=== PATIENT | female | born 2000 | race Caucasian/White ===

== ENCOUNTER 2022-03-17 10:31 | Emergency (ER) | payer OTHER, SELFPAY ==
--- NOTE | ~2022-03-17 | XR_ITS ---
XR chest 2V DATE: 03/17/2022 12:31 INDICATION: Chest heaviness. Dizziness. TECHNIQUE: PA and lateral views COMPARISON: None FINDINGS: Normal heart size. No hilar or mediastinal enlargement. Azygos lobe, normal variant. No pul monary infiltrate or consolidation, pleural effusion or pulmonary vascular congestion or pneumothorax . Included skeletal structures are unremarkable. IMPRESSION: No active cardiopulmonary disease Reviewed, dictated and finalized at location L. [employer] MANAGER
--- NOTE | ~2022-03-17 | CT_ITS ---
CT Abdomen and Pelvis with contrast. History: Abdominal pain. Spiral CT of the abdomen and pelvis was performed after the administration of intravenous contrast. 1 00 cc of Omnipaque 350 was administered intravenously without complication. Dose reduction technique was used on this scan by utilizing automated exposure control and iterative reconstruction technique. The dose-length product (DLP) was 557.10 mGy-cm. Findings: Scans through the lung bases demonstrate mild atelectatic change. The liver, spleen, pancreas, gallbladder, adrenals and right kidney are within normal limits. There i s patchy decreased parenchymal enhancement of the left kidney as well as mild enhancement of the urot helium at a prominent left extrarenal pelvis. No evidence of aortic aneurysm. No lymphadenopathy is seen. There is no evidence of bowel obstruction. There is no evidence to suggest acute appendicitis or dive rticulitis. Images through the pelvis were performed. Urinary bladder unremarkable. No adnexal mass clearly evide nt. No ascites. No ascites is seen. Impression: Left pyelonephritis. Female Reviewed, dictated and finalized at location . E ASSEMBLER Impression: Left pyelonephritis. Female
[2022-03-17 10:40] VITALS: BP 133/85; PULSE 104; RESP 16; TEMP 36.4; O2SAT 100
[2022-03-17 11:33] VITALS: BP 114/68; PULSE 94; RESP 18; O2SAT 100
[2022-03-17 11:34] LABS: Appearance Urine Cloudy (Clear); Bilirubin Urine 1+ (Negative); Blood Urine 2+ (Negative); Color Urine Yellow (Yellow); Glucose Urine UA Negative (Negative); Ketones Urine 3+ mg/dL (Negative); Leukocyte Esterase Ur Trace LEU/UL (Negative); Nitrate Urine Positive (Negative); Protein Urine 2+ mg/dL (Negative); Specific Grav Ur 1.025 (1.001-1.035); pH Urine 5.5 (5.0-9.0)
[2022-03-17 11:36] LABS: Basophils Absolute Auto 0.1 K/mm3 (0.0-0.1); Basophils Percent Auto 0.3 % (0.2-1.2); Eosinophils Percent Auto 0.1 % (0-4.4); Hematocrit 40.7 % (37.0-47.0); Hemoglobin 13.2 g/dL (12.0-15.0); Immature Granulocyte Absolute 0.27 K/mm3 (0.00-0.031); Immature Granulocyte Percent A 1.3 % (0-0.5); Lymphocytes Absolute Auto 1.14 K/mm3 (0.9-3.2); Lymphocytes Percent Auto 5.6 % (18.3-44.2); Mean Corpuscular HGB Conc 32.4 g/dl (32-36); Mean Corpuscular Hemoglobin 29.2 pg (26-34); Mean Platelet Volume 8.5 fl (7.4-10.4); Monocytes Absolute Auto 2.2 K/mm3 (0.1-0.6); Monocytes Percent Auto 10.6 % (2.6-8.5); Neutrophils Absolute Auto 16.8 K/mm3 (1.3-6.7); Neutrophils Percent Auto 82.1 % (45.5-73.1); Platelet Count Result 321 k/mm3 (150-375); Red Blood Count 4.52 M/mm3 (4.2-5.4); Red Cell Distribution Width 12.4 % (11.5-14.5); White Blood Count 20.4 K/mm3 (4.5-10.0)
[2022-03-17 11:38] LABS: Bacteria Urine Trace /hpf; Mucus Urine Heavy /lpf; Squamous Epithelial Cell Urine Many /hpf (Few); WBC Urine 31-50 /hpf
[2022-03-17 11:46] LABS: Anion Gap 6 mmol/L (8-16); Blood Urea Nitrogen 11 mg/dL (7-17); Calcium 8.9 mg/dL (8.4-10.2); Carbon Dioxide 27 mmol/L (22-30); Chloride 104 mmol/L (98-107); Estimated CRCL calculation 120 ml/min; Estimated Glomerular Filt Rate > 60; Glucose 102 mg/dL (65-110); Potassium 4.1 mmol/L (3.4-5.0); Sodium 137 mmol/L (137-145)
[2022-03-17 11:54] LABS: Add Urine Microscopic? YES
--- NOTE | 2022-03-17 11:58 | ECG_ITS ---
Measurements Intervals [place] Rate: 101 P: 41 DC: 142 QRS: 29 QRSD: 77 T: -2 QT: 314 QTc: 407 Interpretive Statements SINUS TACHYCARDIA BORDERLINE T WAVE ABNORMALITY- INFERIOR LEADS BASELINE ARTIFACT- I, II, III, AVR, AVF BORDERLINE ECG NO PREVIOUS ECG AVAILABLE FOR COMPARISON Electronically Signed On 03-17-2022 13:04:07 [employer]K [employer] by Latrell Snow D.O.
[2022-03-17] MEDS: SODIUM CHLORIDE 0.9% IV 1,000 ML 999 ML IV CONT (12:10)
--- NOTE | 2022-03-17 12:19 | ED.FEMALEGU ---
HPI - Female Genitourinary General Chief complaint: Urogenital-Female Stated complaint: sent from - possible pyelonephritis Time Seen by Provider: 03/17/22 10:50 Source: patient Mode of arrival: ambulatory Limitations: no limitations Related Data Allergies Allergy/AdvReac Type Severity Reaction Status Date / Time No Known Allergies Allergy Verified 03/17/22 11:25 [facility] Past Medical History Medical History (Updated 03/17/22 @ 13:04 by Monse Allen PA-C) No active medical problems Course Course Emergency Course: Work-up discussed with patient. Offered admission versus close follow-up outpatient. Patient wishes to be discharged with oral antibiotics and close follow-up Consultations Consultation #1: I did speak with primary on-call, Dr. Benítez, about work-up who will call follow-up in clinic. Date: 03/17/22 Time: 13:09 Vital Signs Vital signs: Vital Signs Temperature 97.6 F 03/17/22 10:40 Pulse Rate 104 H 03/17/22 10:40 Respiratory Rate 16 03/17/22 10:40 Blood Pressure 133/85 03/17/22 10:40 Pulse Oximetry 100 03/17/22 10:40 Temperature 97.6 F 03/17/22 10:40 Pulse Rate 94 03/17/22 11:33 Respiratory Rate 18 03/17/22 11:33 Blood Pressure 114/68 03/17/22 11:33 Pulse Oximetry 100 03/17/22 11:33 MDM - Female Genitourinary MDM Narrative Medical decision making narrative: Patient presents to the emergency department for urinary symptoms ongoing over the last couple of days. Had been treated outpatient with Macrobid with little relief. She is afebrile and nontoxic-appearing. Mildly tachycardic upon arrival, this normalized after IV fluid administration. CBC does show leukocytosis to 20.4. Her kidney function is normal. UA is with evidence of infection. This will be sent for culture. She was also reporting some myalgias and chest heaviness. EKG is without concerning changes and baseline troponin is negative. Her chest x-ray is without acute cardiopulmonary abnormality. Bedside test is negative. CT scan of the abdomen and pelvis shows left-sided pyelonephritis. Patient was updated on work-up. I did offer admission versus close follow-up outpatient. Patient prefers to be continued on oral antibiotics and follow-up outpatient. She has had no nausea or vomiting. Once again she is afebrile with normal vital signs. Will be discharged with cefdinir. I did speak with primary on-call about work-up who will call follow-up in clinic. Patient was given warnings to return to the ER Differential Diagnosis Differential diagnosis: Likely urinary tract infection, ovarian cyst and other (viral syndrome) Lab Data Attestation: I reviewed the patient's lab results. 03/17/22 11:23 03/17/22 11: Labs: Lab Results 03/17/22 03/17/22 03/17/22 Range/Units 11:23 11: 11: WBC 20.4 H (4.5-10.0) K/mm3 RBC 4.52 (4.2-5.4) M/mm3 Hgb 13.2 (12.0-15.0) g/dL Hct 40.7 (37.0-47.0) % MCV 90.0 (80-100) fl MCH 29.2 (26-34) pg MCHC 32.4 (32-36) g/dl RDW 12.4 (11.5-14.5) % Plt Count 321 (150-375) k/mm3 MPV 8.5 (7.4-10.4) fl Immature Gran % (Auto) 1.3 H (0-0.5) % Neut % (Auto) 82.1 H (45.5-73.1) % Lymph % (Auto) 5.6 L (18.3-44.2) % [place] % (Auto) 10.6 H (2.6-8.5) % Eos % (Auto) 0.1 (0-4.4) % Baso % (Auto) 0.3 (0.2-1.2) % Lymph # (Auto) 1.14 (0.9-3.2) K/mm3 [place] # (Auto) 2.2 H (0.1-0.6) K/mm3 Eos # (Auto) 0.0 (0-0.3) K/mm3 Baso # (Auto) 0.1 (0.0-0.1) K/mm3 Abs Immat Gran (auto) 0.27 H (0.00-0.031) K/mm3 Absolute Neuts (auto) 16.8 H (1.3-6.7) K/mm3 Absolute Nucleated RBC 0.0 (0.0-0.012) K/mm3 Nucleated RBC % 0.0 (0.0-0.2) % Sodium 137 (137-145) mmol/L Potassium 4.1 (3.4-5.0) mmol/L Chloride 104 (98-107) mmol/L Carbon Dioxide 27 (22-30) mmol/L Anion Gap 6 L (8-16) mmol/L BUN 11 (7-17) mg/dL Creatinine 0.60 L
[2022-03-17 12:49] LABS: Troponin I < 0.012 ng/mL (0.000-0.034)
[2022-03-17 13:12] VITALS: BP 118/67; PULSE 64; RESP 18; O2SAT 100
== END 2022-03-17 13:15 | disposition home or self-care (01) ==
PROVIDERS: Emergency Provider Physician Assistant
DX: N12 Tubulo-interstitial nephritis, not specified as acute or chronic (principal); R00.0 Tachycardia, unspecified; R94.31 Abnormal electrocardiogram [ECG] [EKG]
CPT/HCPCS: 36415; 71046; 74177; 80048; 81001; 81025; 84484; 85025; 87077; 87086; 87088; 87186; 93005; 96365; 96367; 99284; J0131; J0696; J7030; Q9967